=== PATIENT | male | born 1985 | race African-American/Black ===

== ENCOUNTER 2018-12-20 06:37 | Emergency (ER) | payer OTHER ==
[2018-12-20 07:23] VITALS: BP 111/71; PULSE 79; TEMP 98.2; BMI 42.1
--- NOTE | 2018-12-20 07:51 | PDOC ---
History of Present Illness - General Chief Complaint: Pain Stated Complaint: KNEE INJURY Time Seen by Provider: 12/20/18 07:43 History Source: Patient Exam Limitations: No Limitations Past History - Travel Traveled outside of the country in the last 30 days: No Close contact w/someone who was outside of country & ill: No - Past Medical History Allergies/Adverse Reactions: Allergies Allergy/AdvReac Type Severity Reaction Status Date / Time No Known Allergies Allergy Verified 12/20/18 07:22 Home Medications: Ambulatory Orders Amoxicillin - [Amoxicillin 500mg Capsule -] 500 mg PO BID #20 capsule 12/13/15 Ibuprofen 600 mg PO QID PRN #30 tablet 12/13/15 Acetaminophen [Tylenol] 650 mg PO Q4H #40 tablet 12/20/18 COPD: No HTN: Yes (no meds) - Immunization History Immunization Up to Date: No - Suicide/Smoking/Psychosocial Hx Smoking History: Current some day smoker Have you smoked in the past 12 months: Yes Number of Cigarettes Smoked Daily: 10 Information on smoking cessation initiated: No Substance Use Type: Alcohol Review of Systems - Review of Systems Able to Perform ROS?: Yes Comments:: 12/20/18 08:58 CONSTITUTIONAL: Absent: fever, chills, diaphoresis, generalized weakness, malaise, loss of appetite MUSCULOSKELETAL: Present: R knee pain Absent: myalgia, arthralgia, joint swelling SKIN: Absent: rash, itching, pallor NEUROLOGIC: Absent: headache, focal weakness or paresthesias, dizziness, unsteady gait, seizure, mental status changes, bladder or bowel incontinence PSYCHIATRIC: Absent: anxiety, depression, suicidal or homicidal ideation, hallucinations. Is the patient limited Irish proficient: No *Physical Exam - Vital Signs Last Vital Signs Temp Pulse Resp BP Pulse Ox 98.2 F 79 18 111/71 99 12/20/18 07:18 12/20/18 07:18 12/20/18 07:18 12/20/18 07:18 12/20/18 07:18 - Physical Exam Comments: 12/20/18 09:00 GENERAL: The patient is awake, alert, and fully oriented, in no acute distress. HEAD: Normal with no signs of trauma. EYES: Pupils equal, round and reactive to light, extraocular movements intact, sclera anicteric, conjunctiva clear. EXTREMITIES: R knee appears mildly swollen. Pain at the lateral aspect of the R knee. (+) Yuly's testing on the R. Normal range of motion, no edema. NEUROLOGICAL: Normal speech, normal gait. PSYCH: Normal mood, normal affect. SKIN: Warm, Dry, normal turgor, no rashes or lesions noted. Medical Decision Making - Medical Decision Making 12/20/18 10:14 The patient is a 33-year-old male with no past medical history who presents to the ER today with right knee pain. The patient states he had an injury to that knee approximately 2 years ago. He states that the pain flares up every now and then. He notes that the last 2 days the pain the right knee has increased. 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 Denies new trauma or fall. Denies fevers, chills, numbness and tingling and weakness in the affected extremity. A/P: Right knee pain On exam the right knee is mildly swollen. No calf tenderness. Pain to both lateral aspect of the right knee.Positive Sissy's test. Suspect meniscus injury X-ray is negative for acute fractures. We'll discharge home with knee brace, crutches and orthopedic follow-up. I discussed the physical exam findings, ancillary test results and final diagnoses with the patient. I answered all of the patient's questions. The patient was satisfied with the care received and felt comfortable with the discharge plan and treatment plan. The Patient agrees to follow up with the primary care physician/specialist within 24-72 hours. Return precautions were given. *DC/Admit/Observation/Transfer Diagnosis at time of Disposition: Knee pain, right Qualifiers: Chronicity: acute Qualified Code(s): M25.561 - Pain in right knee - Discharge Dispostion Disposition: HOME Condition at time of disposition: Stable Decision to Admit order: No - Prescriptions Prescriptions: Acetaminophen [Tylenol] 650 mg PO Q4H #40 tablet - Referrals Referrals: Zoe Dalton [Primary Care Provider] - Shiv Weiner MD [Staff Physician] - Romeo Castañeda DO [Staff Physician] - Luke Villarreal MD [Staff Physician] - - Patient Instructions Printed Discharge Instructions: DI for Knee Pain Additional Instructions: You were evaluated for your knee pain today Your x-ray was normal Please wear the knee immobilizer and use crutches as needed until you can see orthopedics You may take the brace off to shower Take Motrin 600mg every 6 hours as needed for pain Take Tylenol 650mg every 4 hours as needed for pain you may alternate between ice and heat on the knee Follow up with orthopedics this week. Referrals have been provided to you Return to the ER for any new or worsening symptoms - Post Discharge Activity Forms/Work/School Notes: Back to Work, Parent(s) Back to Work Note
[2018-12-20] MEDS ORDERED: ACETAMINOPHEN 325 MG TABLET (FP) PO ONE (07:52)
[2018-12-20] MEDS ORDERED: ACETAMINOPHEN 325 MG TABLET (FP) ONE (08:01)
== END 2018-12-20 09:42 | disposition home or self-care (01) ==
LOC: JER 06:37
PROC: 2W3QXYZ Immobilization of Right Lower Leg using Other Device (ICD-10-PCS; principal; 2018-12-20)
DX: M25.561 Pain in right knee (principal)
CPT/HCPCS: 73562-TC-RT-FY; 99282-25

== ENCOUNTER 2019-03-05 05:35 | Emergency (ER) | payer OTHER ==
[2019-03-05 06:02] VITALS: BP 142/98; PULSE 86; TEMP 98.6; BMI 36.1
--- NOTE | 2019-03-05 06:03 | PDOC ---
History of Present Illness - General Stated Complaint: EYE PROBLEM Time Seen by Provider: 03/05/19 05:50 - History of Present Illness Initial Comments: 03/05/19 06:01 The patient is a 34 year old male with a PMH of HTN who presents to our ED c/o a 2 day h/o R eye pain and swelling. Patient noticed mild swelling on Saturday morning associated with an sharp pain; the pain is often exacerbated with light. Denies any visual changes, fever, pain with eye movement. As swelling increased and pain persisted patient decided to come to the ED for further evaluation. 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 Past History - Past Medical History Allergies/Adverse Reactions: Allergies Allergy/AdvReac Type Severity Reaction Status Date / Time No Known Allergies Allergy Verified 12/20/18 07:22 Home Medications: Ambulatory Orders Amoxicillin - [Amoxicillin 500mg Capsule -] 500 mg PO BID #20 capsule 12/13/15 Ibuprofen 600 mg PO QID PRN #30 tablet 12/13/15 Acetaminophen [Tylenol] 650 mg PO Q4H #40 tablet 12/20/18 Polymyxin B Sulf/Trimethoprim [Polymyxin B-Tmp Eye Drops] 3 drop OP ASDIR 7 Days #1 bottle 03/05/19 COPD: No HTN: Yes (no meds) - Immunization History Immunization Up to Date: No - Psycho Social/Smoking Cessation Hx Smoking History: Current some day smoker Have you smoked in the past 12 months: Yes Number of Cigarettes Smoked Daily: 10 Substance Use Type: Alcohol Review of Systems - Review of Systems Constitutional: No: Fever HEENTM: Yes: Eye Pain, Tearing. No: Blurred Vision Respiratory: No: Cough, Shortness of Breath Cardiac (ROS): No: Chest Pain, Lightheadedness, Palpitations, Syncope ABD/GI: No: Constipated, Diarrhea, Nausea, Vomiting *Physical Exam - Physical Exam Comments: 03/05/19 06:09 Awake, alert, non-toxic appearing, marijuana odor on clothes HEENT: R eyelid swelling w/conjunctival injection; Snellen: OD: 20/25, OS: 20/25 , mild photophobia CV: S1, S2, RRR Respiratory: decreased breath sounds B/L, no wheeze/crackle Abdomen: soft, non-tender, (+) bowel sound Medical Decision Making - Medical Decision Making 03/05/19 06:08 34 y/o male with R eyelid swelling and pain. VS unremarkable No diplopia, no fever, no pain with eye movements lower clinical suspicion for orbital cellulitis. Will treat as conjunctivitis w/Polymyxin. Ophthalmological f/u and return precautions. I discussed the physical exam findings, ancillary test results and final diagnoses with the patient. I answered all of the patient's questions. The patient was satisfied with the care received and felt comfortable with the discharge plan and treatment plan. The patient will return to the Emergency Department with any new, persistent or worsening symptoms. Discharge - Discharge Information Problems reviewed: Yes Clinical Impression/Diagnosis: Conjunctivitis Condition: Good Disposition: HOME - Admission No - Additional Discharge Information Prescriptions: Polymyxin B Sulf/Trimethoprim [Polymyxin B-Tmp Eye Drops] 3 drop OP ASDIR 7 Days #1 bottle - Follow up/Referral Referrals: Zoe Dalton [Primary Care Provider] - Davi Yoo MD [Staff Physician] - Amos Grijalva MD [Staff Physician] - - Patient Discharge Instructions Patient Printed Discharge Instructions: DI for Conjunctivitis Additional Instructions: We have sent a prescription for eye drops to your pharmacy. Please take 3 drops every 3 hours for the next 7 days. We have provided a referral to an quartz mounter. You can see this doctor or call your insurance company for a list of covered doctors. You must make an appointment within the next 1 week. Your care is not complete until you are evaluated by an eye doctor. Return to the Emergency Department for any new/worsening/concerning symptoms. - Post Discharge Activity
[2019-03-05] MEDS ORDERED: TETRACAINE 0.5% OPHTH SOLN 2 ML BOTTLE OD ONE (06:04)
[2019-03-05] MEDS ORDERED: TETRACAINE 0.5% OPHTH SOLN 2 ML BOTTLE ONE (06:13)
[2019-03-05] MEDS ORDERED: FLUORESCEIN NA 1 EA STRIP ONE (06:13)
--- NOTE | 2019-03-05 06:14 | PDOC ---
Attending Attestation - Resident Resident Name: Quirino Goetzica - ED Attending Attestation I have performed the following: I have examined & evaluated the patient, The case was reviewed & discussed with the resident, I agree w/resident's findings & plan - HPI HPI: 03/05/19 06:14 34 year old male with a PMH of HTN who presents to our ED c/o a 2 day h/o R eye pain and swelling and discharge. Patient noticed mild swelling on Saturday morning associated with an aching pain. Denies any visual changes/disturbances , fever, pain with eye movement. As swelling increased and pain persisted patient decided to come to the ED for further evaluation. 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 03/05/19 07:04 - Physicial Exam PE: 03/05/19 06:14 NAD, NCAT eomi, perrla. visual acuity 20/25 b/l. right periorbital nonpitting swelling, nontender fluorescein staining no abrasions on UV light. no wilson's sign. soft globe CN II-XII grossly intact. 03/05/19 07:01 03/05/19 21:21 - Medical Decision Making 03/05/19 07:02 Vital Signs Temp Pulse Resp BP Pulse Ox 98.6 F 86 18 142/98 96 03/05/19 05:59 03/05/19 05:59 03/05/19 05:59 03/05/19 05:59 03/05/19 05:59 Visual acuity intact, bilaterally. No evidence of systemic findings or infectious findings, extra ocular muscles intact, no palsies. Fluorescein stain no abrasions noted or uptake. Will treat as conjunctivitis given eye discharge, patient elects for eyedrops so will prescribe polymyxin/trimethoprim every 3 hours for conjunctivitis treatment.Ophthalmology appointment recommended , will give referrals to ophthalmology clinics here. Discharged in stable condition, eye hygiene and handwashing advised
== END 2019-03-05 07:05 | disposition home or self-care (01) ==
LOC: JER 05:35
PROC: 4A07X0Z Measurement of Visual Acuity, External Approach (ICD-10-PCS; principal; 2019-03-05)
DX: H10.31 Unspecified acute conjunctivitis, right eye (principal); I10 Essential (primary) hypertension
CPT/HCPCS: 99282-25